=== PATIENT | female | born 1995 ===

== ENCOUNTER 2021-11-02 13:45 | Emergency (ER) | payer OTHER ==
[~2021-11-02] VITALS: Ht 162.6 cm; Wt 80.7 kg
[2021-11-02] MEDS ORDERED: ONE A DAY PREN1 EACH (14:34)
== END 2021-11-02 20:33 | disposition home or self-care (01) ==
LOC: ER 13:45
DX: O99.891 Other specified diseases and conditions complicating pregnancy (principal); R10.2 Pelvic and perineal pain; Z3A.01 Less than 8 weeks gestation of pregnancy

== ENCOUNTER 2021-11-16 09:22 | Emergency (ER) | payer OTHER ==
[~2021-11-16] VITALS: Ht 162.6 cm; Wt 83.0 kg
[~2021-11-16 09:22] MED LIST: ONE A DAY PREN1 EACH
== END 2021-11-16 15:31 | disposition home or self-care (01) ==
LOC: ER 09:22
DX: O26.891 Other specified pregnancy related conditions, first trimester (principal); Z3A.01 Less than 8 weeks gestation of pregnancy; R10.2 Pelvic and perineal pain; Z88.0 Allergy status to penicillin; Z88.8 Allergy status to other drugs, medicaments and biological substances; Z91.040 Latex allergy status

== ENCOUNTER 2021-12-02 13:44 | Emergency (ER) | payer OTHER ==
[~2021-12-02] VITALS: Ht 162.6 cm; Wt 83.5 kg
== END 2021-12-02 18:48 | disposition home or self-care (01) ==
LOC: ER 13:44
DX: O21.0 Mild hyperemesis gravidarum (principal); Z3A.08 8 weeks gestation of pregnancy; Z88.0 Allergy status to penicillin; Z88.8 Allergy status to other drugs, medicaments and biological substances; Z91.040 Latex allergy status